=== PATIENT | male | born 1950 | race Caucasian/White ===

== ENCOUNTER 2019-08-25 01:33 | Inpatient (IN) | payer OTHER ==
[~2019-08-25] VITALS: Ht 172.7 cm; Wt 70.3 kg
[2019-08-25] MEDS ORDERED: COZAAR25 MG (01:43)
[2019-08-25] MEDS ORDERED: METFORMIN HCL500 M3 (01:44)
[2019-08-25] MEDS ORDERED: CRESTOR5 MG (01:44)
--- NOTE | 2019-08-25 01:44 | NUR ---
PTE ALERTA Y ORIENTADO TRAIDO POR PARAMEDICOS DE EMERGENCIAS ESTATAL [place],Y ES LLEVADO DIRECTAMENTE A AREA DE COVID-19.PTE PRESENTA FATIGA AL HABLAR,NO HABLA EN ORACIONES COMPLETAS,SE OBSERA SUDOROSO.REFIERE FUE DADO DE [facility] DE [facility] [place] SIDO TRANSUFUNDIDO,REFIERE HOY COMENZO CON PRESION EN EL PECHO E INDICA CONGESTION,REFIERE FALTA DE AIRE Y TUVO FIEBRE EN EL HOGAR Y LA NENA ADVIL.NO REFIERE NO TENER TOS.SE DINESH S/V,AL MOMENTO AFEBIRL,SATURANCION 95% SOSTENIDO AUNQUE LLEGO HASTA 98%.PTE CON MASCARILLA Y SE LIN BAJO OBSERVACION.
--- NOTE | 2019-08-25 01:50 | NUR ---
SE ORIENTA A PTE SOBRE PROTOCOLO DE AREA Y REFIERE ENTENDER.
--- NOTE | 2019-08-25 02:15 | NUR ---
PT EVALUADO POR DR SHARRI GRIFFIN [place]. SE LE ORIENTA SOBRE EL MISMO, PTE REFIERE ENTENDER. SE LE COLECTAN MUESTRAS Y SE CANALIZA BAJO MEDIDAS ASEPTICAS, PT TOLERA. SE LE ADMINISTRAN MEDICAMENTOS TAMEKA PRESCRITOS. SE NOTIFICA ABGS A MR PATIENCE DE TERAPIA RESPIRATORIA Y RX. SE LE REALIZA EKG Y SE PRESENTA A DR SHARRI GRIFFIN EVALUA EL MISMO. ORDENES EJECUTADAS POR MRS Janak GILBERT.
--- NOTE | 2019-08-25 02:43 | NUR ---
SE NOTIFICA POR SEGUNDA VEZ ABGS Y TERAPIAS RESPIRATORIAS A MR MEME.
--- NOTE | 2019-08-25 03:34 | NUR ---
MR LETY DE TERAPIA RESPIRATORIA [place] A PTE VENTURY MASK AL 35% POR ORDEN DE DR HARRELL.
--- NOTE | 2019-08-25 04:23 | NUR ---
SE LLEVA PTE A CT EN [place] DE A[place] Y CON MASCARILLA,PTE TOLERA.
--- NOTE | 2019-08-25 07:50 | NUR ---
SE RECIBE PTE MASCULINIO DE 68 YRS ALERTA CONCIENTE Y TRANQUILO EN LA UNIDAD DE SEC-K EN CAMA . SE OBSERVA PTE CON H/L PATENTE EN MANO DERECHA . SE OBSERVA PTE CON VENTURY MASK AL 35% Y SATURANDO 92%. SE LE SHANTI S/V LA CUAL SE MANTIENE ESTABLE. SE DOCUENTA.SE LE REALIZA EKG A PTE . SE MANTIENE EN ESPERA DE MEDICO CONSULTOR DR.RIVERA GUNN QUE SE MANTIENE NOTIFICADO. SE MANTIENE BAJO OBSERVACION POR CAMBIOS.
== END 2019-10-18 21:50 | disposition expired | DRG 4 ==
LOC: ER 01:33 → MEDJ 13:44 → ICU 13:44
PROVIDERS: Otolaryngology; ADMIT Internal Medicine; ATTEND Internal Medicine
PROC: 5A1955Z Respiratory Ventilation, Greater than 96 Consecutive Hours (ICD-10-PCS; 2019-08-25)
PROC: 8E0ZXY6 Isolation (ICD-10-PCS; 2019-08-25)
PROC: 0BH17EZ Insertion of Endotracheal Airway into Trachea, Via Natural or Artificial Opening (ICD-10-PCS; 2019-08-25)
PROC: 02HV33Z Insertion of Infusion Device into Superior Vena Cava, Percutaneous Approach (ICD-10-PCS; 2019-08-25)
PROC: 4A12X4Z Monitoring of Cardiac Electrical Activity, External Approach (ICD-10-PCS; 2019-08-25)
PROC: 4A033R1 Measurement of Arterial Saturation, Peripheral, Percutaneous Approach (ICD-10-PCS; 2019-08-25)
PROC: CB2YYZZ Tomographic (Tomo) Nuclear Medicine Imaging of Respiratory System using Other Radionuclide (ICD-10-PCS; 2019-08-25)
PROC: B24BZZZ Ultrasonography of Heart with Aorta (ICD-10-PCS; 2019-08-25)
PROC: 3E0F7GC Introduction of Other Therapeutic Substance into Respiratory Tract, Via Natural or Artificial Opening (ICD-10-PCS; 2019-08-26)
PROC: B24BZZZ Ultrasonography of Heart with Aorta (ICD-10-PCS; 2019-08-27)
PROC: 0DH67UZ Insertion of Feeding Device into Stomach, Via Natural or Artificial Opening (ICD-10-PCS; 2019-08-28)
PROC: 3E0G76Z Introduction of Nutritional Substance into Upper GI, Via Natural or Artificial Opening (ICD-10-PCS; 2019-08-28)
PROC: 30233N1 Transfusion of Nonautologous Red Blood Cells into Peripheral Vein, Percutaneous Approach (ICD-10-PCS; 2019-09-04)
PROC: 0B110F4 Bypass Trachea to Cutaneous with Tracheostomy Device, Open Approach (ICD-10-PCS; principal; 2019-09-20 16:00)
PROC: B24BZZZ Ultrasonography of Heart with Aorta (ICD-10-PCS; 2019-10-13)
DX: A40.1 Sepsis due to streptococcus, group B (principal); R65.21 Severe sepsis with septic shock; J96.01 Acute respiratory failure with hypoxia; B37.1 Pulmonary candidiasis; J15.1 Pneumonia due to Pseudomonas; J95.84 Transfusion-related acute lung injury (TRALI); K92.1 Melena; E87.0 Hyperosmolality and hypernatremia; E87.3 Alkalosis; E11.9 Type 2 diabetes mellitus without complications; D56.9 Thalassemia, unspecified; Z21 Asymptomatic human immunodeficiency virus [HIV] infection status; Z93.3 Colostomy status; R31.29 Other microscopic hematuria; Z20.828 Contact with and (suspected) exposure to other viral communicable diseases; Z85.038 Personal history of other malignant neoplasm of large intestine; Z66 Do not resuscitate; I48.0 Paroxysmal atrial fibrillation; I50.9 Heart failure, unspecified; I11.0 Hypertensive heart disease with heart failure; I08.0 Rheumatic disorders of both mitral and aortic valves; F17.210 Nicotine dependence, cigarettes, uncomplicated; Z03.818 Encounter for observation for suspected exposure to other biological agents ruled out; R19.7 Diarrhea, unspecified